=== PATIENT | female | born 1955 | race Caucasian/White ===

== ENCOUNTER 2017-08-27 19:40 | Inpatient (IN) | payer BC ==
[2017-08-27] MEDS ORDERED: Amlodipine 5 MG TAB ONE (21:10)
[2017-08-28 00:07] VITALS: BMI 23.3
[2017-08-28] MEDS ORDERED: Ondansetron HCl/PF 4 MG/2 ML Vial IVP PRN ×2 (01:29→06:41)
[2017-08-28] MEDS ORDERED: Ondansetron ODT 4 MG TAB SL PRN (01:29)
[2017-08-28] MEDS ORDERED: Acetaminophen 325 MG TAB PO PRN ×2 (01:29→06:41)
[2017-08-28] MEDS ORDERED: Gadobenate Dimeglumine 529 MG/1 ML (20ML VIAL) ONE (06:21)
[2017-08-28] MEDS ORDERED: cloNIDine 0.1 MG TAB PO PRN (06:41)
[2017-08-28] MEDS ORDERED: traMADol HCl 50 MG TAB PO PRN (06:41)
[2017-08-28] MEDS ORDERED: Senokot 8.6 MG TAB PO PRN (06:41)
[2017-08-28] MEDS ORDERED: Nitroglycerin 0.4 MG TAB (25 Tab Bottle) SL PRN (06:41)
[2017-08-28] MEDS ORDERED: Benzonatate 100 MG CAP PO PRN (06:41)
[2017-08-28] MEDS ORDERED: hydrALAZINE 20 MG/ML VIAL SLOW IVP PRN (06:41)
[2017-08-28] MEDS ORDERED: Mag-Al 1200 mg/1200 mg/30 ML UDCUP PO PRN (06:41)
[2017-08-28] MEDS ORDERED: Bisacodyl 5 MG TAB PO PRN (06:41)
[2017-08-28] MEDS ORDERED: Loratadine 10 MG TAB PO PRN (06:41)
[2017-08-28] MEDS ORDERED: Diabetic Tussin 200 MG/10 ML UDCUP PO PRN (06:41)
[2017-08-28 07:41] LABS: ALT (SGPT) 46 U/L (8-55); AST (SGOT) 45 U/L (5-34); Albumin 3.9 g/dL (3.4-4.8); Alkaline Phosphatase 147 U/L (40-150); Anion Gap 12 mmol/L (10-20); BUN (Urea Nitrogen) 8 mg/dL (9.8-20.1); Bilirubin, Total 0.7 mg/dL (0.2-1.2); Calc. Creatinine Clearance 65 mL/min (70-130); Calcium 9.5 mg/dL (7.8-10.44); Carbon Dioxide 23 mmol/L (23-31); Chloride 107 mmol/L (98-107); Estimated GFR-MDRD 73; Globulin 2.8 g/dL (2.4-3.5); Glucose 117 mg/dL (80-115); Potassium 4.3 mmol/L (3.5-5.1); Protein, Total 6.7 g/dL (6.0-8.3); Sodium 138 mmol/L (136-145)
[2017-08-28] MEDS ORDERED: Aspirin 325 MG TAB PO SCH (08:00)
--- NOTE | 2017-08-28 08:17 | ULT ---
BILATERAL CAROTID DUPLEX ULTRASOUND: HISTORY: TIA. TECHNIQUE: Aj scale ultrasound with color flow and spectral Doppler imaging of the extracranial carotid artery systems is performed bilaterally. FINDINGS: There is mild plaque formation on either side. The peak systolic velocity in the right ICA measures 106 cm/s with an end-diastolic velocity of 32 cm /s and a systolic ratio of 1.31. The peak systolic velocity in the left ICA measures 87 cm/s with an end-diastolic velocity of 26 cm/s and a systolic ratio of 1.07. Flow in both vertebral arteries remains antegrade. IMPRESSION: No evidence of hemodynamically significant stenosis. POS: OFF
[2017-08-28] MEDS ORDERED: Lisinopril/Hydrochlorothiazide 20/25 mg Tablet PO SCH (09:00)
[2017-08-28] MEDS ORDERED: Amlodipine 5 MG TAB PO SCH (09:00)
[2017-08-28] MEDS ORDERED: Anastrozole 1 MG TAB PO SCH (09:00)
[2017-08-28] MEDS ORDERED: Enoxaparin Sodium 40 MG/0.4 ML SYRINGE SC SCH (09:00)
--- NOTE | 2017-08-28 10:08 | MRI ---
MRI BRAIN WITH AND WITHOUT CONTRAST: DATE: 08/28/17. HISTORY: A 62-year-old female with stroke. Headache and left-sided hypesthesia. Visual deficits. COMPARISON: Noncontrast CT of 08/27/17. No prior MRIs of brain. TECHNIQUE: Multiple sequences obtained in axial, sagittal, and coronal planes; pre and post IV injection of gado linium-based contrast agent: 20 mL of MultiHance. FINDINGS: There are numerous foci of T2 hyperintense signal and restricted diffusion, representing acute/subacu te infarctions. These lesions vary in size from punctate (1 or 2 mm) for the smallest ones, up to 3 x 1.5 cm for the largest confluent lesion, that corresponds to the CT hypodensity. Many more tiny fo candi lesions are demonstrated on this MRI compared to the CT. These involve punctate areas in the rig ht occipital pole peripheral cortex, the confluent region in the medial aspect of the right occipital lobe mentioned above, and other areas including periventricular areas following the temporal horn an d trigone of the right lateral ventricle, and right posterolateral temporal/occipital junction. Ther e is also a 3 mm round acute/subacute lacunar infarction in the right thalamus. There is effacement of the trigone of the right lateral ventricle. Other than this, there is no othe r area of mass effect. No midline shift. No obstructive hydrocephalus. There is a large number of small focal T2 hyperintensities in the periventricular, deep, and subcorti candi white matter of the bilateral cerebral hemispheres, which do not have restricted diffusion, repre senting moderate chronic ischemic white matter changes due to microvascular atherosclerosis. There i s no abnormal enhancement, recent or remote intraaxial hemorrhage, or extraaxial fluid collection. IMPRESSION: 1. Multifocal acute/subacute infarctions in the right posterior cerebral artery territory. 2. Moderate chronic ischemic white matter changes. LARRY R POS: GAUDENCIO
[2017-08-28 10:24] LABS: Cardiac Risk 4.4 (Less than 4.5)
--- NOTE | 2017-08-28 10:54 | HP ---
DATE OF ADMISSION: 08/28/2017 PRIMARY CARE PHYSICIAN: Teresa Pepper. CHIEF COMPLAINT: Vision changes and left hand numbness as well as left facial numbness. HISTORY OF PRESENT ILLNESS: Ms. Rodriguez is a very pleasant 62-year-old female with past medical his tory of breast cancer in remission as well as hypertension, who presented to the emergency room with the above-mentioned complaints. History is mainly obtained by the patient herself. Electronic medic al records have been reviewed. According to Ms. Rodriguez she has been in her usual health. Ms. Kevin patel's blood pressure is well controlled on a home regimen of lisinopril. Three days ago she started to notice dull headache and eventually felt that her vision is very weak more so in the left eye baldo n the right eye. Her symptoms included blurriness as well as feeling that everything is too far away . It was not associated with any nausea, vomiting, fever, chills, or any other symptomatology that i s chest pain, headache or shortness of breath. The symptoms got better, but then came back yesterday , so she presented to [facility]. There, she underwent a CT scan of the brain which ace wed low density area in the middle right occipital lobe, likely age indeterminate stroke. She was tr ansferred to [facility] and was admitted for further workup to stroke floor. Currentl y, she is hemodynamically stable and her symptoms are somewhat better. She also noticed symptoms of left hand numbness as well as left side of mild numbness which has gone away. She denies any dysphagia or dysarthria. She denies any muscle weakness. With regards to her breast cancer, she is on remission status post bilateral mastectomy. She continu es on Arimidex. She follows up with Oncology, Dr. Shoemaker. In the emergency room, the patient was f ound to be in hypertensive urgency with a systolic blood pressure over 200. PAST MEDICAL HISTORY: 1. Hypertension. 2. Breast cancer. PAST SURGICAL HISTORY: 1. Bilateral mastectomy. 2. Cholecystectomy. PSYCHIATRIC HISTORY: No anxiety, no depression. SOCIAL HISTORY: She drinks socially. Smokes 1 cigar daily. She is retired and lives with her famil y. FAMILY HISTORY: She is the only child. Her mother had mild heart attack in her 80s. Otherwise, no history of CVA or heart disease or premature coronary artery disease runs in her family. ALLERGIES: No known medication allergies. CURRENT MEDICATIONS: Lisinopril 10 mg daily and anastrozole 1 mg daily. REVIEW OF SYSTEMS: The following complete review of systems was negative, unless otherwise mentioned in the HPI or below: Constitutional: Weight loss or gain, ability to conduct usual activities. Skin: Rash, itching. Eyes: Double vision, pain. ENT/Mouth: Nose bleeding, neck stiffness, pain, tenderness. Cardiovascular: Palpitations, dyspnea on exertion, orthopnea. Respiratory: Shortness of breath, wheezing, cough, hemoptysis, fever or night sweats. Gastrointestinal: Poor appetite, abdominal pain, heartburn, nausea, vomiting, constipation, or diarr hea. Genitourinary: Urgency, frequency, dysuria, nocturia. Musculoskeletal: Pain, swelling. Neurologic/Psychiatric: Anxiety, depression. Allergy/Immunologic: Skin rash, bleeding tendency. It is negative except for those mentioned in the history and physical. LABORATORY DATA AND IMAGING DATA: CBC shows WBCs at 6.5 with 52% neutrophils, hemoglobin 15.4, and p latelet count of 309. Serum chemistries rather unremarkable. Blood sugar is 117. Cardiac enzymes u nremarkable. Urinalysis shows trace blood and moderate leukocyte esterase and urine drug screen is n egative. Plasma alcohol level less than 10. Chest x-ray by my review has no acute cardiopulmonary a bnormality. CT scan of the brain by my review as per above. Chronic mild small vessel ischemic cummings ges are noticed. Carotid Doppler ultrasound is negative for any hemodynamically significant stenosis . PHYSICAL EXAMINATION: VITAL SIGNS: Most recent vital signs include temperature 98.8, pulse of 67, respirations 20, saturat ing 98% on room air, blood pressure 187/66. GENERAL: No acute distress, awake, alert, oriented x3, very pleasant. HEENT: Mucous membrane is moist and pink. No oropharyngeal exudate or erythema. Head is normocepha lic and atraumatic. Pupils are equal and reactive to light and accommodation. Extraocular movement intact. No nystagmus. NECK: Supple without any lymphadenopathy, JVD or bruit. CHEST: Clear to auscultation without any wheezing, rales or rhonchi. Rhythm is regular without any murmur, rubs or gallops. ABDOMEN: Soft, nontender, nondistended. No hepatosplenomegaly. NEUROLOGIC: She has difficulty with her eyesight on the left eye when covering the right eye. Other correa, no gross neurological focal deficits noted. SKIN: Free of any rashes or bruises. PSYCHIATRIC: Normal affect. VASCULAR: +2 pedal pulses felt bilaterally. EXTREMITIES: No cyanosis, clubbing, or edema. IMPRESSION AND PLAN: 1. Transient ischemic attack. The patient's symptoms are most consistent with transient ischemic at tack. At this time, she will be admitted to the stroke floor for further workup. We will provide ad equate blood pressure control at the same time leaving the margin for permissive hypertension. She w ill be restarted on lisinopril and hydrochlorothiazide as well as full dose aspirin and we will add s tatin. Recheck lipid panel. Her last lipid panel done in 10/2016 showed slightly higher triglycerid es and total cholesterol. She will be evaluated by stroke team and we will also do MRI of the brain with and without contrast, carotid Doppler ultrasound, as well as transthoracic echocardiogram. We w ill also consult Neurology for further recommendations. She is currently hemodynamically stable. 2. Hypertensive urgency. The patient has been controlled better now. This is likely secondary to t ransient ischemic attack itself. We will resume her home medications. Add Norvasc as well and monit or blood pressure closely and avoid too much lowering at one time. 3. History of breast cancer. She is currently in remission and continues to take Arimidex as prophy laxis. We will continue that in the hospital as well. 4. History of hypertension. Resume home medication as above. 5. Deep venous thrombosis and gastrointestinal prophylaxis. 6. Code status: FULL CODE, as discussed with the patient. DISPOSITION: The patient is currently being admitted to the stroke floor with possible TIA/CVA. Est imated length of stay is at least 2-3 midnight. Further management will depend upon her clinical cou rse.
[2017-08-28 11:56] VITALS: TEMP 98.4
--- NOTE | 2017-08-28 13:51 | CON ---
DATE OF CONSULTATION: 08/28/2017 NEUROLOGY CONSULTATION CONSULTING PHYSICIAN: Hospitalist Service. IMPRESSION: 1. Right posterior circulation infarct with transient vision distortion, headache, and numbness. 2. Hypertension. 3. Tobacco use. PLAN: 1. Aspirin 81 mg per day. 2. Lipitor 20 mg per day. 3. Discontinue smoking. 4. The patient can be discharged home. HISTORY OF PRESENT ILLNESS: Ms. Rodriguez is a 62-year-old white female who developed vision distorti on yesterday associated with some right-sided headache and some numbness around the lip. The headach e and vision distortion have resolved. She has never had anything like this in the past. She was ad mitted for further evaluation. A carotid ultrasound did not show any stenosis. Her MRI of the brain showed some chronic small vessel ischemic changes as well as some acute ischemic damage in the right posterior cerebral artery distribution. Her EKG showed normal sinus rhythm. She was not taking asp irin or statin prior to this. Her cholesterol level was 236 with a ratio of 4.4. PAST MEDICAL HISTORY: Hypertension. SOCIAL HISTORY: Positive for tobacco and alcohol use. ALLERGIES: None reported. FAMILY HISTORY: Noncontributory. REVIEW OF SYSTEMS: Otherwise, unremarkable. PHYSICAL EXAMINATION: GENERAL: She is a reasonably healthy appearing middle-aged woman, in no distress. VITAL SIGNS: Blood pressure 161/85, pulse 75, respirations 20, temperature 98.4. HEENT: Pupils equal and reactive. Conjunctivae clear. Oropharynx clear. NECK: Supple. EXTREMITIES: No cyanosis, clubbing or edema. NEUROLOGIC: She is alert and appropriate. Her speech is fluent and clear. Cranial nerves appear to be intact. Motor exam shows symmetric strength. Cerebellar function is intact. Sensation in the e xtremities is normal. She can walk independently. Imaging was reviewed. SUMMARY: A middle-aged woman with history of hypertension with evidence of chronic small vessel cummings ges and acute infarction in the right posterior cerebral artery territory, likely secondary to a prim donte thrombosis. Her echo is pending, but could be followed up as an outpatient. I will be happy to be involved in her care.
[2017-08-28 15:57] VITALS: BP 150/63
--- NOTE | 2017-08-28 19:36 | DIS ---
DATE OF ADMISSION: 08/28/2017 DATE OF DISCHARGE: 08/28/2017 PRIMARY CARE PHYSICIAN: Teresa Pepper, DISCHARGE DIAGNOSES: 1. Acute cerebrovascular accident involving the right posterior cerebral artery with transient visio n loss, headache, and numbness. 2. Hypertension. 3. On and off tobacco abuse. 4. Breast cancer in remission. DISCHARGE MEDICATIONS: Aspirin 81 mg daily, Lipitor 20 mg daily. Resume home medication as per HPI. BRIEF HOSPITAL COURSE: Ms. Rodriguez was admitted earlier by myself for rule out CVA with symptoms of vision loss of 3-day duration with left hand and left facial numbness. Her CVA workup included tuttle sthoracic echocardiogram, which was unremarkable with EF of 55% and a carotid Doppler ultrasound, whi ch was negative for any hemodynamically significant stenosis. Her brain MRI however showed multifoca l acute versus subacute infarction in the right posterior cerebral artery territory, moderate chronic ischemic white matter changes. She was seen by Neurology, Dr. Sandoval, who recommended starting her on low-dose aspirin as well as L ipitor and outpatient followup with discharge from the hospital today. The patient is hemodynamicall y stable and eager to go home. She has no neurological deficits at this time as mentioned above. Pl ease see admission history and physical for further details as dictated by myself few hours ago. She will follow up with her primary care physician, Dr. Teresa Pepper. She will also follow up with N eurology as an outpatient.
[2017-08-28] MEDS ORDERED: Atorvastatin Calcium 20 MG TAB PO SCH (21:00)
== END 2017-08-28 16:37 | disposition home or self-care (01) | DRG 66 ==
LOC: ERS 19:40 → 2SE 21:48
PROVIDERS: ADMIT Internal Medicine; ATTEND Internal Medicine
PROC: B030ZZZ Magnetic Resonance Imaging (MRI) of Brain (ICD-10-PCS; principal; 2017-08-28)
DX: I63.331 Cerebral infarction due to thrombosis of right posterior cerebral artery (principal); C50.919 Malignant neoplasm of unspecified site of unspecified female breast; F17.210 Nicotine dependence, cigarettes, uncomplicated; Z79.811 Long term (current) use of aromatase inhibitors; I10 Essential (primary) hypertension
CPT/HCPCS: 36415; 70553; 80053; 80061; 93306; 93880; 99285; A9579; G8978-GP-CH; G8979-GP-CH; G8980-GP-CH; G8987-GO-CH; G8988-GO-CH; G8989-GO-CH; J1650

== ENCOUNTER 2018-12-06 13:50 | Outpatient (CLI) | payer MEDICARE, BC ==
--- NOTE | 2018-12-06 14:39 | BD ---
DEXA BONE DENSITY STUDY: Date: 12/06/18 HISTORY: Postmenopausal. FINDINGS: Lumbar Spine: BMD (g/cm2) L1 0.904 T-Score: -0.8 L2 0.898 T-Score: -1.2 L3 0.880 T-Score: -1.9 L4 0.998 T-Score: -0.6 Total 0.916 T-Score: -1.2 Left Femoral Neck: 0.617 T-Score: -2.1 Total Femur: 0.842 T-Score: -0.8 IMPRESSION: Osteopenia of the lumbar spine and left femoral neck. POS: MARA
== END 2018-12-06 13:51 | disposition home or self-care (01) ==
LOC: BICMAMMO 13:50
PROVIDERS: ATTEND Family Medicine
DX: M85.88 Other specified disorders of bone density and structure, other site (principal)
CPT/HCPCS: 77080

== ENCOUNTER 2020-11-13 13:30 | Outpatient (CLI) | payer MEDICARE, BC | END 2020-11-13 13:31 | disposition home or self-care (01) | LOC: BICMAMMO 13:30 | PROVIDERS: ATTEND Pediatrics Pediatric Endocrinology | DX: M85.89 Other specified disorders of bone density and structure, multiple sites (principal) | CPT/HCPCS: 77080 ==

== ENCOUNTER 2023-06-30 10:43 | Day surgery (SDC) | payer MEDICARE, BC ==
[2023-06-29 09:51] VITALS: BMI 21.9
[2023-06-30] MEDS ORDERED: PHENYLephrine 2.5% Ophth Soln 15 ml Bottle ONE (11:11)
== END 2023-06-30 13:40 | disposition home or self-care (01) ==
LOC: SDC 10:43
PROVIDERS: ATTEND Ophthalmology
PROC: 085K3ZZ Destruction of Left Lens, Percutaneous Approach (ICD-10-PCS; principal; 2023-06-30)
PROC: 085J3ZZ Destruction of Right Lens, Percutaneous Approach (ICD-10-PCS; 2023-06-30)
DX: H26.493 Other secondary cataract, bilateral (principal); Z79.899 Other long term (current) drug therapy